=== PATIENT | female | born 1980 | race Hispanic/Latino ===

== ENCOUNTER 2017-08-08 06:18 | Inpatient (IN) | payer BC, OTHER ==
[2017-08-08 06:24] VITALS: BMI 29.9
[2017-08-08 06:53] LABS: HEMATOCRIT 41.6 % (34.0-47.0); MEAN CELL VOLUME 91.9 fl (81.0-99.0); MEAN CORPUSCULAR HEMOGLOBIN 30.8 pg (27.0-31.0); MEAN CORPUSCULAR HGB CONC 33.5 g/dL (33.0-37.0); RED CELL DISTRIBUTION WIDTH 12.6 % (11.5-14.5); WHITE BLOOD COUNT 7.6 K/uL (4.8-10.8)
[2017-08-08] MEDS ORDERED: Lactated Ringer's 1,000 ML IV ONE ×3 (07:04→07:50)
[2017-08-08] MEDS ORDERED: Propofol 10 mg/ml Inj (20 ML) ONE (07:35)
[2017-08-08] MEDS ORDERED: Rocuronium 10 mg/ml (5 ml) ONE ×2 (07:36→10:09)
[2017-08-08] MEDS ORDERED: Succinylcholine 200 mg/10 ml Inj IV ONE (07:36)
[2017-08-08] MEDS ORDERED: Lidocaine 4% (Laryng-O-Jet) Kit MM ONE (07:36)
[2017-08-08] MEDS ORDERED: ePHEDrine 50 mg/ml Inj ONE (07:36)
[2017-08-08] MEDS ORDERED: Neostigmine Methylsulfate 3mg/3ml Syringe IV ONE (07:37)
[2017-08-08] MEDS: Bupivacaine 0.5% Inj(30mL) ONE ×2 (07:52→09:40)
[2017-08-08] MEDS ORDERED: Midazolam 2 MG/2 ML VIAL ONE (08:42)
[2017-08-08] MEDS ORDERED: Dexamethasone 4 mg/1 ml ONE (09:20)
[2017-08-08] MEDS ORDERED: Desflurane Inhalation Anesthetic Liq (240 ml) ONE (10:22)
[2017-08-08] MEDS ORDERED: Lactated Ringer's 1,000 ML IV SCH ×2 (12:15→13:45)
[2017-08-08] MEDS: HYDROmorphone 0.5 mg/0.5 ml ISec IVP PRN ×5 (12:25→13:48)
[2017-08-08] MEDS ORDERED: Simethicone 40 mg/0.6 ml Liquid (30 ml) PO PRN (13:37)
[2017-08-08] MEDS ORDERED: Oxycodone/Acetaminophen 5/325 mg Tab PO PRN (13:38)
[2017-08-08] MEDS ORDERED: Trimethobenzamide 200 mg/2 mL Inj IM PRN (14:53)
[2017-08-08] MEDS ORDERED: Lactated Ringer's 500 ML IV SCH ×2 (20:45)
[2017-08-09 08:19] VITALS: BP 106/69; PULSE 70; RESP 20; TEMP 98.4; O2SAT 96
--- NOTE | 2017-08-16 11:19 | OP ---
PROCEDURE DATE: 08/08/2017 SURGEON: Isaac Castro MD ASSISTED BY: Jeremias Salas MD, from general surgery, who was called in for assistance in this very complex case. TYPE OF ANESTHESIA: General endotracheal. PREOPERATIVE DIAGNOSES: Pelvic pain, dyspareunia, dysmenorrhea, rectal pain, bladder pain and history of endometriosis as well as abnormal bleeding and isthmocele. POSTOPERATIVE DIAGNOSES: Pelvic pain, dyspareunia, dysmenorrhea, rectal pain, bladder pain and history of endometriosis as well as abnormal bleeding and isthmocele plus stage IV endometriosis and ovarian cyst and bilateral hydrosalpinges. PROCEDURES PERFORMED: Cystoscopy with bilateral placement of stents and injection of IC-Green dye, hysteroscopy operatively operative with metroplasty and excision of isthmocele, robotic laparoscopy with excision of endometriosis, bilateral ureterolysis, bilateral salpingectomy and left ovarian cystectomy. Additionally, Dr. Salas performed excision of rectal mass and an appendectomy; he will dictate those separately. INDICATION FOR THE PROCEDURE: This is a patient who is a 37-year-old female with a history of significant pelvic pain as well as abnormal menstrual bleeding as well as severe symptoms related to her periods which are significantly prolonged. She failed most medical treatments and I performed a full evaluation, which revealed presence of pelvic adhesions significant as well as evidence of rectal disease as well as presence of an isthmocele. The patient was offered different approached with the treatment of the endometriosis and the isthmocele including a hysterectomy, but given her young age, she did not want to have a hysterectomy, so we discussed the various options for the treatment of the isthmocele and we agreed on conservative treatment. Prior to the surgery, she was counseled with the risks and benefits of the procedure and the likelihood that the surgery would be successful in solving her symptoms and we also discussed the fact that her pain may or may not improve after the surgery. At this point, she signed the consent and she was taken to the OR. DESCRIPTION OF PROCEDURE: After the consent was finally obtained, the patient was brought to the operating room and placed on the operating table in the dorsal lithotomy position. An IV was started and antibiotics were administered. After a satisfactory anesthesia was obtained, with the patient was placed in dorsal lithotomy position and with extensive padding in all areas, a time-out was performed according to the hospital policy. At this point, the cystoscope was inserted into bladder under direct vision and a menard cystoscopy was performed and attention was paid to both ureteral orifices, which were both in the anatomical normal positions. The left ureteral orifice was catheterized with a Kazakh open-ended ureteral catheter, and a solution of ICG was then injected for a total of 4 mL into the left ureteral catheter after the ureteral catheter was advanced into the distal ureter. The ureteral catheter was then removed and attention was on the right ureteral catheter at which point an IC-Green was injected into the right ureteral catheter. At this point, the ureteral catheter was removed. The bladder was inspected and noted to be free of tumors, stones or bleeding sources. The cystoscope was removed, and a 16-Kazakh Zheng catheter was placed. At this point, attention was in the vaginal area where a speculum was placed in the vagina. The anterior lip of the cervix was grasped. The cervix was dilated and an operative was inserted into uterine cavity. The cavity appeared to be normal in size, but there appeared to be a very large isthmocele, also known as a niche present in the lower uterine segment. At this point, the resectoscope was placed inside the cervix and a part of the isthmocele was excised allowing outflow of menstrual blood in the future. This was performed very carefully to avoid the lateral bleeding. At this point, the hysteroscope was removed, uterine manipulator was placed in the uterus and attention was on the abdomen where an open laparoscopy was performed utilizing the standard technique making an incision on the skin and then entering the abdomen in a blunt fashion. Under direct visualization, the abdomen was insufflated and additional ports were inserted in left upper quadrant, left mid quadrant and right upper quadrant. The da Joann Xi robot was then docked and targeted and the instruments were inserted. At this point, the findings were as follows: There was an obliterated cul-de-sac with extensive adhesions. Both left and right ovaries were severe adherent to the pelvic sidewalls. There were 2 massive hydrosalpinges both on the left and right side. The appendix appeared to be pooled into the adhesions, but the anterior bladder appeared to be free of adhesions. Dr. Salas went ahead and performed some lysis of adhesions and performed an appendectomy, he will dictate separately. At this point, attention was on the left hand side where after identifying the ureter, ureterolysis was performed opening the retroperitoneal space and progressively dissecting the ureter laterally all the way down to the conjuncture with the left uterine artery. Once this was done, I was able to elevate the ovary and to observe the pelvic sidewall. There was an area of deep infiltrating endometriosis which was progressively excised starting at the rim of the utero-ovarian ligament all the way down to the uterosacral ligament. The large area of peritoneum containing endometriosis was then excised and sent to pathology. At this point, the left fallopian tube appeared to be severely damaged and it was elevated and a progressive salpingectomy was performed with extreme care not to devascularize the ovary. A cyst on the left ovary and endometrioma were also excised completely without leaving any endometriosis behind. At this point in the posterior cul-de-sac area were excised all areas of deep endometriosis with great care not to injure the bowel. There were a couple of superficial bowel lesions that were excised by Dr. Sharif, he will dictate those separately. At this point, attention was on the right hand side where again the ureter was identified and was progressively dissected off and lateralized and the retroperitoneum was entered and progressive dissection was performed in a [id number] fashion not to injure the ureter and an area of peritoneum containing endometriosis, deeply infiltrating was also excised. The right tube also was having large hydrosalpinx which was excised, again with extreme care not to injure the ovary or devascularize the ovary. At this point, multiple smaller areas of endometriosis were also excised in the rectal fossa area and the ovarian fossa area by the uterine artery on the right side. At this point, it was checked for hemostasis that appeared to be very, very good. The cul-de-sac appeared to be clear of disease. The bowel was intact, there were no damages to the bowel or to the bladder. Both ovaries were intact and the endometriosis was removed and excised. At this point, the pelvis was irrigated, the da Joann robot was detached and the abdomen was desufflated and all the instruments were removed. The incision was closed in layers with 0 PDS for the fascia and 4-0 Monocryl for the skin. At the end of the procedure, all tapes and instruments counts were correct. The patient tolerated the procedure well and was taken to the recovery room in excellent condition. Isaac Castro MD MTDGiovani
--- NOTE | 2017-10-17 11:31 | PCM.OP ---
Operative Report - Operative Report Date of Surgery/Procedure: 08/09/17 Time of Surgery/Procedure: 08:00 Surgeon: Dr. Salas [employer] Developer: Dr. Castro
--- NOTE | 2017-10-29 22:44 | OP ---
PROCEDURE DATE: 08/09/2017 PREOPERATIVE DIAGNOSES: Abdominal pain, endometriosis. POSTOPERATIVE DIAGNOSES: Abdominal pain, endometriosis with involvement of the appendix. SURGEON: Jeremias Salas MD. SUPERVISOR BONDING: Isaac Castro MD. TYPE OF ANESTHESIA: General. ANESTHESIA ADMINISTERED BY: Vero Olvera MD. DESCRIPTION OF PROCEDURE: The patient was already brought to the operating room by Dr. Isaac Castro, when he requested intraoperative General Surgery consultation for involvement of the appendix. Dr. Castro has a separate dictation. After taking over the robotic console, the appendix was retracted anteriorly and laterally and using blunt and sharp dissection with the electrocautery, the mesentery of the appendix was desiccated with particular attention to the appendiceal artery. The appendix was dissected to the base. Two 3-0 PDS loop sutures were placed through one of the ports and the appendix was ligated in a double fashion. The appendix was then transected. The tip was cauterized. The appendix was brought through one of the trocars. The appendix was properly marked and sent to pathology as a separate specimen. The area was examined, hemostasis was deemed adequate, and all counts were correct. The patient was in stable condition. The operation was then turned back over to Dr. Isaac Castro (separate dictation of Dr. Castro). Jeremias Salas MD
== END 2017-08-09 11:24 | disposition home or self-care (01) | DRG 743 ==
LOC: H.OPSURG 06:18 → H.MEDSURG1 13:34
PROVIDERS: ADMIT Obstetrics & Gynecology Reproductive Endocrinology; ATTEND Obstetrics & Gynecology Reproductive Endocrinology
PROC: 0DBW0ZZ Excision of Peritoneum, Open Approach (ICD-10-PCS; 2017-08-08)
PROC: 0DTJ0ZZ Resection of Appendix, Open Approach (ICD-10-PCS; 2017-08-08)
PROC: 0UJD8ZZ Inspection of Uterus and Cervix, Via Natural or Artificial Opening Endoscopic (ICD-10-PCS; 2017-08-08)
PROC: 8E0W0CZ Robotic Assisted Procedure of Trunk Region, Open Approach (ICD-10-PCS; 2017-08-08)
PROC: 0TJB8ZZ Inspection of Bladder, Via Natural or Artificial Opening Endoscopic (ICD-10-PCS; principal; 2017-08-08 08:30)
PROC: 0UT70ZZ Resection of Bilateral Fallopian Tubes, Open Approach (ICD-10-PCS; 2017-08-08 08:30)
PROC: 0UB10ZZ Excision of Left Ovary, Open Approach (ICD-10-PCS; 2017-08-08 08:30)
DX: N80.0 Endometriosis of uterus (principal); K62.89 Other specified diseases of anus and rectum; N73.6 Female pelvic peritoneal adhesions (postinfective); N80.2 Endometriosis of fallopian tube; N83.12 Corpus luteum cyst of left ovary; N83.02 Follicular cyst of left ovary; N94.10 Unspecified dyspareunia; N94.6 Dysmenorrhea, unspecified; N70.11 Chronic salpingitis